=== PATIENT | male | born 1980 | race Hispanic/Latino ===

== ENCOUNTER 2017-07-12 22:41 | Emergency (ER) | payer OTHER ==
[2017-07-12 22:50] VITALS: BP 146/82; PULSE 112; RESP 20; TEMP 99.7; O2SAT 96
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
== END 2017-07-12 23:30 | disposition home or self-care (01) ==
LOC: ED 22:41
DX: Z04.1 Encounter for examination and observation following transport accident (principal); V48.5XXA Car driver injured in noncollision transport accident in traffic accident, initial encounter; Y92.410 Unspecified street and highway as the place of occurrence of the external cause